=== PATIENT | male | born 1945 ===

== ENCOUNTER 2017-04-30 17:22 | Emergency (ER) | payer MEDICARE ==
[~2017-04-30] VITALS: Ht 180.3 cm; Wt 77.3 kg
[2017-04-30 17:26] VITALS: BP 141/63; TEMP 98.8
[2017-04-30] MEDS ORDERED: ZOCOR 10MG10 MG PO (18:18)
[2017-04-30] MEDS ORDERED: SYNTHROID0.075 MG/T PO (18:18)
[2017-04-30] MEDS ORDERED: TEGRETOL 2200 MG/TA1 PO (18:18)
[2017-04-30] MEDS ORDERED: LOPRESSOR 225 MG/TAB PO (18:18)
[2017-04-30] MEDS ORDERED: CEPHALEXIN500 M1 PO (18:43)
[2017-04-30] MEDS ORDERED: NORCO 325 MG-7.1 TAB PO (18:43)
[2017-04-30 19:15] VITALS: PULSE 88
== END 2017-04-30 19:15 | disposition home or self-care (01) ==
LOC: COL.ER 17:22
DX: S61.212A Laceration without foreign body of right middle finger without damage to nail, initial encounter (principal); E03.9 Hypothyroidism, unspecified; I48.91 Unspecified atrial fibrillation; Z23 Encounter for immunization; W23.1XXA Caught, crushed, jammed, or pinched between stationary objects, initial encounter; Y92.009 Unspecified place in unspecified non-institutional (private) residence as the place of occurrence of the external cause
CPT/HCPCS: J0696

== ENCOUNTER → 2018-05-29 | Outpatient (REF) ==
[~2018-05-29] MED LIST: CEPHALEXIN500 M1 PO; LOPRESSOR 225 MG/TAB PO; NORCO 325 MG-7.1 TAB PO; SYNTHROID0.075 MG/T PO; TEGRETOL 2200 MG/TA1 PO; ZOCOR 10MG10 MG PO
== END ==
LOC: ZLAB.WCH 08:35
DX: Z01.89 Encounter for other specified special examinations (principal)